=== PATIENT | male | born 1975 | race Asian ===

== ENCOUNTER 2023-12-16 20:30 | Emergency (ER) | payer BC, OTHER ==
[~2023-12-16] VITALS: Ht 170.2 cm; Wt 70.8 kg
[2023-12-16 21:05] VITALS: TEMP 98
[2023-12-16] MEDS ORDERED: LIDOCAINE HCL/MPF 1% 30 ML VIAL IJ ONE (22:00)
[2023-12-16] MEDS ORDERED: AMOX/CLAVULANATE 875 MG TABLET ONE (22:00)
[2023-12-16] MEDS ORDERED: TDAP [DIPH/PERTUSSIS/TET] 0.5 ML VIAL IM ONE (22:00)
[2023-12-16] MEDS: AMOX/CLAVULANATE 875 MG TABLET PO ONE (22:07)
[2023-12-16] MEDS: TDAP [DIPH/PERTUSSIS/TET] 0.5 ML VIAL IM ONE (22:08)
[2023-12-16] MEDS ORDERED: AMOX-430 PO (23:09)
[2023-12-16 23:19] VITALS: BP 128/74; O2SAT 100
== END 2023-12-16 23:20 | disposition home or self-care (01) ==
LOC: ER 20:34
DX: S61.217A Laceration without foreign body of left little finger without damage to nail, initial encounter (principal); W54.0XXA Bitten by dog, initial encounter; Y93.89 Activity, other specified; Y92.89 Other specified places as the place of occurrence of the external cause; Y99.8 Other external cause status
CPT/HCPCS: 12001; 73140; 90471; 90715; 99283; J3490